=== PATIENT | male | born 1955 | race Two or more races ===

== ENCOUNTER 2022-03-11 09:37 | Outpatient (CLI) | payer OTHER | END 2022-03-11 09:41 | disposition home or self-care (01) | LOC: RX STUDY 09:37 | PROVIDERS: ATTEND Otolaryngology Plastic Surgery within the Head & Neck | DX: R13.10 Dysphagia, unspecified (principal) ==

== ENCOUNTER 2022-03-11 13:16 | Outpatient (CLI) | payer OTHER | END 2022-03-11 13:26 | disposition home or self-care (01) | LOC: PPH VACUNA 13:16 | PROVIDERS: ATTEND Emergency Medicine Pediatric Emergency Medicine | DX: Z23 Encounter for immunization (principal) ==